=== PATIENT | female | born 1985 | race American Indian/Alaskan Native ===

== ENCOUNTER 2016-07-23 15:33 | Inpatient (IN) | payer BC, OTHER ==
[2016-07-23 16:54] LABS: Alanine Aminotransferase 45 units/L (7-56); Albumin 4.4 g/dL (3.9-5); Albumin/Globulin Ratio 1.5 %; Alkaline Phosphatase 83 units/L (35-129); Anion Gap 20 mmol/L; BUN/Creatinine Ratio 8.33; Blood Urea Nitrogen 5 mg/dL (7-17); Carbon Dioxide 25 mmol/L (22-30); Chloride 99.2 mmol/L (98-107); Glucose 105 mg/dL (65-100); Lipase 121 units/L (13-60); Potassium 3.6 mmol/L (3.6-5.0); Sodium 141 mmol/L (137-145); Total Protein 7.4 g/dL (6.3-8.2)
[2016-07-23 17:11] LABS: Basophils % (Auto) 0.6 % (0.0-1.8); Hematocrit 42.3 % (30.3-42.9); Hemoglobin 13.6 gm/dl (10.1-14.3); Mean Corpuscular HGB Conc 32 % (30-34); Mean Corpuscular Hemoglobin 28 pg (28-32); Mean Corpuscular Volume 86 fl (79-97); Platelet Count 246 K/mm3 (140-440); Red Blood Count 4.95 M/mm3 (3.65-5.03); Red Cell Distribution Width 15.7 % (13.2-15.2)
[2016-07-23 17:29] LABS: Bacteria,Urine 1+ /HPF (Negative); Bilirubin,Urine NEG (Negative); Blood,Urine SM (Negative); Ketones,Urine TR mg/dL (Negative); Leukocyte Esterase,Urine NEG (Negative); Mucus,Urine 2+ /HPF; Nitrite,Urine NEG (Negative)
[2016-07-23] MEDS ORDERED: ZOFRAN IV ONE (17:35)
[2016-07-23] MEDS ORDERED: DILAUDID IV ONE ×2 (17:35→19:00)
[2016-07-23] MEDS ORDERED: NACL ONE (17:54)
[2016-07-23] MEDS ORDERED: D5NS 1,000 ML IV SCH (18:00)
--- NOTE | 2016-07-23 18:45 | Cat Scan Report ---
FINAL REPORT PROCEDURE: CT ABDOMEN PELVIS W CON TECHNIQUE: Computerized axial tomography of the abdomen and pelvis was performed after the IV injection of iodinated nonionic contrast. HISTORY: ruq pain, epigastric pain, hx of pancreatitis COMPARISON: No prior studies are available for comparison. FINDINGS: Visualized lower thorax: No significant abnormality. Liver: Diffuse low attenuation is compatible with fatty infiltration. Spleen: Normal size and attenuation. Gallbladder and biliary system: Gallbladder is present. No evidence of biliary ductal dilatation. Pancreas: Pancreatic calcifications are compatible with prior pancreatitis. There is mild stranding surrounding pancreatic head which may be related to mild acute pancreatitis. Correlate with lab values. Adrenals: Normal. Kidneys: Normal. GI tract: No appendiceal inflammation. Scattered sigmoid and left colon diverticula are present. Fluid-filled proximal small bowel loops may be related to ileus. No acute inflammation or obstruction. Lymph nodes and mesentery: Normal. Vasculature: Normal. Bladder: Normal. Reproductive organs: Normal. Peritoneum: No free fluid. Musculoskeletal structures: No acute abnormality. Other: None. IMPRESSION: Findings are compatible with pancreatitis involving the pancreatic head. Correlate with patient lab values. Fatty infiltration of the liver
[2016-07-23] MEDS ORDERED: NACL 0.9% 1000 ML 1,000 ML IV ONE (19:05)
--- NOTE | 2016-07-23 19:05 | Emergency Department Report ---
ED Abdominal Pain HPI - General Chief Complaint: Abdominal Pain Stated Complaint: STOMACH PAIN Time Seen by Provider: 07/23/16 17:29 Source: patient Mode of arrival: Ambulatory Limitations: No Limitations - History of Present Illness Initial Comments: 30-year-old female with a past medical history of alcohol-induced pancreatitis presents to the hospital with complaints of abdominal pain and nausea vomiting since this morning. Pain is in the right upper quadrant radiates to the back is sharp and dull in nature and rated 10/10 in intensity. Pain worse with palpation, movement, and vomiting. No alleviating factors reported. Similar symptoms in the past with acute pancreatitis secondary to alcohol abuse. She stopped drinker for a while but has had recent alcohol intake because she was upset by the of 2 friends. No abdominal surgeries reported. Last bowel movement yesterday Severity scale (0 -10): 10 - Related Data Previous Rx's Medication Instructions Recorded Last Taken Type oxyCODONE /ACETAMINOPHEN [Percocet 1 tab PO Q4HR #20 tab 04/25/15 Unknown Rx 5/325] Allergies Allergy/AdvReac Type Severity Reaction Status Date / Time No Known Allergies Allergy Unverified 01/23/15 19:18 ED Review of Systems ROS: Stated complaint: STOMACH PAIN Other details as noted in HPI Comment: All other systems reviewed and negative Other: Constitutional: No fevers chills Eyes: No eye pain visual changes ENT: No ear pain or throat pain Neck: Denies pain Respiratory: Denies cough wheezing shortness of breath Cardiovascular: Denies chest pain, palpitations, syncope GI: As per HPI : Denies dysuria Musculoskeletal: Denies back pain Skin: Denies rash, lesions, erythema Neurologic: Denies headache, numbness, weakness Psychiatric: Denies suicidal ideation, hallucinations ED Past Medical Hx - Past Medical History Hx Congestive Heart Failure: No Hx Diabetes: No Hx Asthma: No Hx COPD: No Additional medical history: pancreatitis - Social History Smoking Status: Never Smoker Substance Use Type: Alcohol - Medications Home Medications: Home Medications Medication Instructions Recorded Confirmed Last Taken Type oxyCODONE /ACETAMINOPHEN [Percocet 1 tab PO Q4HR #20 tab 04/25/15 Unknown Rx 5/325] ED Physical Exam - General Limitations: No Limitations - Other Other exam information: General: No limitations, patient is alert in no acute distress Head exam: Atraumatic, normocephalic Eyes exam: Normal appearance, nonicteric sclera ENT: Moist mucous membrane, normal oropharynx Neck exam: Normal inspection, full range of motion Respiratory exam: Clear to auscultation bilateral, no wheezes, rales, crackles Cardiovascular: Normal rate and rhythm, normal heart sounds Abdomen: Soft, nondistended, right upper quadrant and epigastric tenderness, with normal bowel sounds, no rebound, or guarding Extremity: Full range of motion normal inspection no deformity Back: Normal Inspection, full range of motion, no tenderness Neurologic: Alert, oriented x3, cranial nerves intact, no motor or sensory deficit Psychiatric: normal affect, normal mood Skin: Warm, dry, intact ED Course Vital Signs 07/23/16 07/23/16 07/23/16 16:13 17:21 17:30 Temperature 98 F Pulse Rate 75 Respiratory 18 Rate Blood Pressure 127/96 134/95 O2 Sat by Pulse 100 99 100 Oximetry 07/23/16 07/23/16 17:46 18:00 Temperature Pulse Rate 71 Respiratory 10 L 16 Rate Blood Pressure 134/95 O2 Sat by Pulse 100 Oximetry - Reevaluation(s) Reevaluation #1: 07/23/16 19:04 Patient treated with D5 NS, normal saline, Dilaudid 0.5 mg and Zofran. She continues to have pain so additional Dilaudid 1 mg ordered ED Medical Decision Making - Lab Data Result diagrams: 07/23/16 16:22 07/23/16 16:22 Lab Results 07/23/16 07/23/16 07/23/16 Range/Units 16:22 16:22 16:22 WBC 8.0 (4.5-11.0) K/mm3 RBC 4.95 (3.65-5.03) M/mm3 Hgb 13.6 (10.1-14.3) gm/dl Hct 42.3 (30.3-42.9) % MCV 86 (79-97) fl MCH 28 (28-32) pg MCHC 32 (30-34) % RDW 15.7 H (13.2-15.2) % Plt Count 246 (140-440) K/mm3 Lymph % (Auto) 21.2 (13.4-35.0) % [place] % (Auto) 9.2 H (0.0-7.3) % Eos % (Auto) 1.0 (0.0-4.3) % Baso % (Auto) 0.6 (0.0-1.8) % Lymph # 1.7 (1.2-5.4) K/mm3 [place] # 0.7 (0.0-0.8) K/mm3 Eos # 0.1 (0.0-0.4) K/mm3 Baso # 0.0 (0.0-0.1) K/mm3 Seg Neutrophils % 68.0 (40.0-70.0) % Seg Neutrophils # 5.4 (1.8-7.7) K/mm3 Sodium 141 (137-145) mmol/L Potassium 3.6 (3.6-5.0) mmol/L Chloride 99.2 (98-107) mmol/L Carbon Dioxide 25 (22-30) mmol/L Anion Gap 20 mmol/L BUN 5 L (7-17) mg/dL Creatinine 0.6 L (0.7-1.2) mg/dL Estimated GFR > 60 ml/min BUN/Creatinine Ratio 8.33 % Glucose 105 H (65-100) mg/dL Calcium 9.0 (8.4-10.2) mg/dL Magnesium 1.90 (1.7-2.3) mg/dL Total Bilirubin 0.70 (0.1-1.2) mg/dL AST 58 H (5-40) units/L ALT 45 (7-56) units/L Alkaline Phosphatase 83 (35-129) units/L Total Protein 7.4 (6.3-8.2) g/dL Albumin 4.4 (3.9-5) g/dL Albumin/Globulin Ratio 1.5 % Lipase 121 H (13-60) units/L Urine Color (Yellow) Urine Turbidity (Clear) Urine pH (5.0-7.0) Ur Specific [place] (1.003-1.030) Urine Protein (Negative) mg/dL Urine Glucose (UA) (Negative) mg/dL Urine Ketones (Negative) mg/dL Urine Blood (Negative) Urine Nitrite (Negative) Urine Bilirubin (Negative) Urine Urobilinogen (<2.0) mg/dL Ur Leukocyte Esterase (Negative) Urine WBC (Auto) (0.0-6.0) /HPF Urine RBC (Auto) (0.0-6.0) /HPF U Epithel Cells (Auto) (0-13.0) /HPF Urine Bacteria (Auto) (Negative) /HPF Urine Mucus /HPF Urine HCG, Qual (Negative) 07/23/16 Range/Units 17:01 WBC (4.5-11.0) K/mm3 RBC (3.65-5.03) M/mm3 Hgb (10.1-14.3) gm/dl Hct (30.3-42.9) % MCV (79-97) fl MCH (28-32) pg MCHC (30-34) % RDW (13.2-15.2) % Plt Count (140-440) K/mm3 Lymph % (Auto) (13.4-35.0) % [place] % (Auto) (0.0-7.3) % Eos % (Auto) (0.0-4.3) % Baso % (Auto) (0.0-1.8) % Lymph # (1.2-5.4) K/mm3 [place] # (0.0-0.8) K/mm3 Eos # (0.0-0.4) K/mm3 Baso # (0.0-0.1) K/mm3 Seg Neutrophils % (40.0-70.0) % Seg Neutrophils # (1.8-7.7) K/mm3 Sodium (137-145) mmol/L Potassium (3.6-5.0) mmol/L Chloride (98-107) mmol/L Carbon Dioxide (22-30) mmol/L Anion Gap mmol/L BUN (7-17) mg/dL Creatinine (0.7-1.2) mg/dL Estimated GFR ml/min BUN/Creatinine Ratio % Glucose (65-100) mg/dL Calcium (8.4-10.2) mg/dL Magnesium (1.7-2.3) mg/dL Total Bilirubin (0.1-1.2) mg/dL AST (5-40) units/L ALT (7-56) units/L Alkaline Phosphatase (35-129) units/L Total Protein (6.3-8.2) g/dL Albumin (3.9-5) g/dL Albumin/Globulin Ratio % Lipase (13-60) units/L Urine Color Yellow (Yellow) Urine Turbidity Clear (Clear) Urine pH 7.0 (5.0-7.0) Ur Specific [place] 1.026 (1.003-1.030) Urine Protein 30 mg/dl (Negative) mg/dL Urine Glucose (UA) Neg (Negative) mg/dL Urine Ketones Tr (Negative) mg/dL Urine Blood Sm (Negative) Urine Nitrite Neg (Negative) Urine Bilirubin Neg (Negative) Urine Urobilinogen 2.0 (<2.0) mg/dL Ur Leukocyte Esterase Neg (Negative) Urine WBC (Auto) 1.0 (0.0-6.0) /HPF Urine RBC (Auto) 17.0 (0.0-6.0) /HPF U Epithel Cells (Auto) 5.0 (0-13.0) /HPF Urine Bacteria (Auto) 1+ (Negative) /HPF Urine Mucus 2+ /HPF Urine HCG, Qual Negative (Negative) - Radiology Data Radiology results: report reviewed (CT abdomen and pelvis IV contrast: Acute pancreatitis see report) - Medical Decision Making Plan to admit patient to the hospital for treatment of acute pancreatitis exacerbation secondary to alcohol use - Differential Diagnosis pancreatitis, biliary colic, hepatitis, gastritis Critical Care Time: No Critical care attestation.: If time is entered above; I have spent that time in minutes in the direct care of this critically ill patient, excluding procedure time. ED Disposition Clinical Impression: Alcohol induced acute pancreatitis Disposition: OP ADMITTED IP TO THIS HOSP Is pt being admited?: Yes Condition: Stable Time of Disposition: 19:06 (Dr Velazco/[facility])
[2016-07-23 21:06] VITALS: BP 121/87
[2016-07-23] MEDS ORDERED: DULCOLAX PR PRN (21:44)
[2016-07-23] MEDS ORDERED: ZOFRAN IV PRN (21:44)
[2016-07-23] MEDS ORDERED: MORPHINE IV PRN (21:44)
[2016-07-23] MEDS ORDERED: ATIVAN IV PRN ×2 (21:44)
[2016-07-23] MEDS ORDERED: MILK OF MAGNESIA PO PRN (21:44)
[2016-07-23] MEDS ORDERED: TYLENOL PO PRN (21:44)
--- NOTE | 2016-07-23 21:46 | History and Physical Report ---
History of Present Illness Date of examination: 07/23/16 Date of admission: 07/23/16 19:13 History of present illness: 30-year-old woman with a history of alcohol abuse, pancreatitis comes emergency room comes to the emergency room with complaints of abdominal pain in the epigastric area. She describes the pain as sharp, constant, started today, intensity 7/10, radiating to the back, better with pain medication. Admits to nausea vomiting Patient denies chest pain, palpitation, shortness of breath, cough, hematochezia , dysuria, frequency, focal weakness, dysarthria, fever chills, polydipsia polyuria, hot or cold intolerance, easy bruisability, or rash or bleeding from mucosal membrane, rhinorrhea, epistaxis, earache, tinnitus, blurry vision, eye discharge, anxiety, depression. Other review of systems negative. PAST SURGICAL HISTORY: None SOCIAL HISTORY: Alcohol use, smoked one cigar a day, no drugs FAMILY HISTORY: Hypertension Medications and Allergies Allergies Allergy/AdvReac Type Severity Reaction Status Date / Time No Known Allergies Allergy Verified 07/23/16 19:33 Home Medications Medication Instructions Recorded Confirmed Last Taken Type oxyCODONE /ACETAMINOPHEN [Percocet 1 tab PO Q4HR #20 tab 04/25/15 07/23/16 Unknown Rx 5/325] Active Meds: Active Medications Dextrose/Sodium Chloride (D5ns) 1,000 mls @ 999 mls/hr IV DIRECT GALE Last Admin: 07/23/16 18:00 Dose: 999 mls/hr Exam - Physical Exam Narrative exam: Gen. appearance: Patient lying in bed, no apparent distress HEENT: Normocephalic, atraumatic, pupils equally round and reactive to light, extraocular movement intact, and no sclericterus,. No JVD or thyromegaly or nodule,neck supple, no carotid bruit ,mucous membranes moist, no exudate or erythema Heart: S1, S2, regular rate and rhythm Lungs: Clear to auscultation bilaterally, breathing comfortable Abdomen: Positive bowel sounds, tender in the epigastric area, nondistended, no organomegaly Extremity: No edema, cyanosis, clubbing Skin: No rash, nodules, warm, dry Neuro: Oriented 3, cranial nerves II-12 intact, speech is fluent, motor and sensory intact - Constitutional Vitals: Temp Pulse Resp BP Pulse Ox 98.3 F 74 18 121/87 100 07/23/16 21:00 07/23/16 21:00 07/23/16 21:00 07/23/16 21:00 07/23/16 21:00 Results - Labs CBC & Chem 7: 07/23/16 16:22 07/23/16 16:22 - Imaging and Cardiology CT scan - abdomen: report reviewed CT scan - pelvis: report reviewed Assessment and Plan Acute on chronic pancreatitis Alcohol abuse Admit to medicine Start IV fluids, bowel rest Start IV morphine,CIWA protocol with IV Ativan, DVT prophylaxis
[2016-07-23] MEDS ORDERED: NACL 0.45% 1000 ML 1,000 ML IV SCH (22:00)
--- NOTE | 2016-07-24 00:54 | Event Note ---
Date: 07/23/16 Patient signed out against medical advise, please refer to the H&P for details Risk and benefits were explained to her
[2016-07-24] MEDS ORDERED: VITAMIN B-1 PO SCH (10:00)
[2016-07-24] MEDS ORDERED: FOLVITE PO SCH (10:00)
== END 2016-07-23 23:24 | disposition left against medical advice (07) | DRG 440 ==
LOC: ED 15:33 → 3A 19:13
PROVIDERS: ADMIT Internal Medicine; ATTEND Internal Medicine
DX: K85.20 Alcohol induced acute pancreatitis without necrosis or infection (principal); F17.200 Nicotine dependence, unspecified, uncomplicated; F10.10 Alcohol abuse, uncomplicated; Z82.49 Family history of ischemic heart disease and other diseases of the circulatory system
CPT/HCPCS: 36415; 74177; 80053; 81001; 81025; 83690; 83735; 85025; 96361; 96374; 96375; 96376; J1170; J2270; J2405; J7030; J7042; Q9967

== ENCOUNTER 2016-07-24 07:42 | Emergency (ER) | payer OTHER ==
[2016-07-24] MEDS ORDERED: SUBLIMAZE IV ONE (08:27)
[2016-07-24] MEDS ORDERED: NACL 0.9% 1000 ML 1,000 ML IV ONE (08:27)
[2016-07-24] MEDS ORDERED: ZOFRAN IV ONE (08:27)
[2016-07-24 08:53] LABS: Basophils % (Auto) 0.6 % (0.0-1.8); Eosinophils % (Auto) 1.9 % (0.0-4.3); Hematocrit 40.4 % (30.3-42.9); Hemoglobin 12.9 gm/dl (10.1-14.3); Mean Corpuscular HGB Conc 32 % (30-34); Mean Corpuscular Hemoglobin 28 pg (28-32); Mean Corpuscular Volume 86 fl (79-97); Platelet Count 227 K/mm3 (140-440); Red Blood Count 4.69 M/mm3 (3.65-5.03); Red Cell Distribution Width 15.8 % (13.2-15.2); White Blood Count 9.2 K/mm3 (4.5-11.0)
[2016-07-24 08:58] LABS: Alanine Aminotransferase 33 units/L (7-56); Albumin/Globulin Ratio 1.5 %; Alkaline Phosphatase 71 units/L (35-129); Anion Gap 19 mmol/L; BUN/Creatinine Ratio 8.33; Blood Urea Nitrogen 5 mg/dL (7-17); Calcium 8.9 mg/dL (8.4-10.2); Carbon Dioxide 23 mmol/L (22-30); Chloride 100.1 mmol/L (98-107); Glucose 116 mg/dL (65-100); Lipase 114 units/L (13-60); Potassium 3.4 mmol/L (3.6-5.0); Sodium 139 mmol/L (137-145); Total Protein 6.7 g/dL (6.3-8.2)
--- NOTE | 2016-07-24 10:15 | Emergency Department Report ---
HPI - General Chief Complaint: Abdominal Pain Time Seen by Provider: 07/24/16 08:24 - HPI HPI: The patient is 30-year-old female with a history of pancreatitis, whom presents for evaluation of abdominal pain. The patient reports epigastric abdominal pain since awakening yesterday morning at 8 AM, greater than 25 hours prior to my evaluation. She states that her pain has been constant since onset, 10/10 in severity, sharp pain throbbing in quality, associated with nausea and nonbilious, nonbloody emesis. The patient denies fever, chills, night sweats, diarrhea, blood in the stool, dark tarry stool, dysuria, hematuria, flank pain, genital discharge, inability to pass flatus. ED Past Medical Hx - Past Medical History Previous Medical History?: Yes Hx Congestive Heart Failure: No Hx Diabetes: No Hx Asthma: No Hx COPD: No Additional medical history: pancreatitis - Surgical History Past Surgical History?: No - Social History Smoking Status: Current Every Day Smoker Substance Use Type: Alcohol, Prescribed - Medications Home Medications: Home Medications Medication Instructions Recorded Confirmed Last Taken Type oxyCODONE /ACETAMINOPHEN [Percocet 1 tab PO Q4HR #20 tab 04/25/15 07/23/16 Unknown Rx 5/325] HYDROcodone/APAP 5-325 [[place] 1 each PO Q6HR PRN #15 tablet 07/24/16 Unknown Rx 5/325] ED Review of Systems ROS: Stated complaint: ABD PAIN Other details as noted in HPI Constitutional: denies: fever ENT: denies: throat or neck pain Respiratory: denies: cough, shortness of breath Cardiovascular: denies: chest pain Endocrine: denies unexplained weight loss or gain Gastrointestinal: reports abdominal pain, nausea Genitourinary: denies: dysuria Musculoskeletal: denies: leg swelling Skin: denies: rash Neurological: denies: headache Hematological/Lymphatic: denies: easy bleeding or easy bruising Psych: denies sadness or hopelessness Physical Exam - Physical Exam Vital Signs: Vital Signs 07/24/16 07/24/16 07/24/16 07:57 08:07 08:10 Temperature 98.2 F Pulse Rate 69 Respiratory 18 Rate Blood Pressure 138/91 144/96 O2 Sat by Pulse 97 99 98 Oximetry 07/24/16 08:21 Temperature Pulse Rate Respiratory 18 Rate Blood Pressure O2 Sat by Pulse Oximetry Physical Exam: General: well-nourished, well-developed, no acute distress Head: Normocephalic, atraumatic Eyes: normal sclera ENT: Mucous membranes are pale and dry Neck: No neck stiffness, no cervical adenopathy Respiratory: Breath sounds equal bilaterally, no wheezing, rales, or rhonchi Cardio: S1 and S2 present, no murmurs, rubs, gallops, capillary refill is delayed Abdomen: Normoactive bowel sounds, soft abdomen, epigastric tenderness to palpation present, no rigidity, no guarding or rebound tenderness Musc: No pitting edema Skin: No rash Neuro: no facial drooping, normal speech Psych: Normal affect ED Course Vital Signs 07/24/16 07/24/16 07/24/16 07:57 08:07 08:10 Temperature 98.2 F Pulse Rate 69 Respiratory 18 Rate Blood Pressure 138/91 144/96 O2 Sat by Pulse 97 99 98 Oximetry 07/24/16 08:21 Temperature Pulse Rate Respiratory 18 Rate Blood Pressure O2 Sat by Pulse Oximetry ED Medical Decision Making - Lab Data Result diagrams: 07/24/16 08:30 07/24/16 08:30 - Medical Decision Making The patient was seen and examined by myself. The patient is placed on a dtp operator and continuous pulse ox. On initial evaluation, the patient was found to be in no distress. Evaluation orders are placed. IV access is established and the patient is given 1 L normal saline fluid bolus and Zofran for nausea, and IV fentanyl for pain. Lab results revealed mildly elevated lipase level of 114, down from previous lipase levels on evaluation here recently, and overall lab results were non-concerning including WBC, hemoglobin , hematocrit, electrolytes, renal function, LFTs, negative test. Medical records are reviewed and revealed that the patient received a CT scan of the abdomen and pelvis with IV contrast in this emergency department less than 24 hours ago, at which was negative for pancreatic necrosis or infection. The patient was reevaluated and reported that her pain persisted. She was offered Tylenol and Motrin and she declined them. The patient request Dilaudid , stating that morphine and fentanyl did not control her pain. She was informed that her evaluation was negative for clinical indication warranting Dilaudid. The patient is stable for discharge with outpatient follow-up. The patient is given follow-up and return instructions. The patient expressed understanding and agreed with the plan. The patient is discharged in stable condition. Critical care attestation.: If time is entered above; I have spent that time in minutes in the direct care of this critically ill patient, excluding procedure time. ED Disposition Clinical Impression: Dehydration, Abdominal pain, acute, epigastric Alcohol induced acute pancreatitis Qualifiers: Acute pancreatitis complication: no infection or necrosis Qualified Code(s): K85.20 - Alcohol induced acute pancreatitis without necrosis or infection Disposition: DISCHARGED TO HOME OR SELFCARE Is pt being admited?: No Does the pt Need Aspirin: No Condition: Stable Instructions: Pancreatitis (ED), Abdominal Pain (ED) Additional Instructions: Do not take more than the prescribed dose of norco/pain medicine, or combine or take the pain medicine prescribed to you today with other pain medicine, sleeping medicine or other sedatives, or with alcohol, as doing so may cause central nervous system sedation and respiratory depression, and potentially cause you to stop breathing and . Additionally, do not drive a vehicle, operate heavy machinery, or engage in any activity that would cause harm to yourself or others after taking the pain medicine prescribed to you. Prescriptions: HYDROcodone/APAP 5-325 [[place] 5/325] 1 each PO Q6HR PRN #15 tablet PRN Reason: Pain Referrals: PRIMARY CARE, [Primary Care Provider] - 3-5 Days Time of Disposition: 10:14
[2016-07-24 11:20] VITALS: BP 104/54
== END 2016-07-24 11:20 | disposition home or self-care (01) ==
LOC: ED 07:42
DX: K85.20 Alcohol induced acute pancreatitis without necrosis or infection (principal); E86.0 Dehydration; R10.13 Epigastric pain; F17.200 Nicotine dependence, unspecified, uncomplicated
CPT/HCPCS: 36415; 80053; 83690; 84703; 85025; 96361; 96374; 96375; 99284; J2405; J3010; J7030